=== PATIENT | female | born 1975 | race Caucasian/White ===

== ENCOUNTER 2018-08-30 06:30 | Day surgery (SDC) | payer OTHER ==
[~2018-08-30 06:30] MED LIST: LEVO-T50 MCG PO; OMEPRAZOLE20 MG PO; RANITIDINE HCL150 M1 PO; SIMVASTATIN10 MG PO; VALSARTAN-HCTZ1 EAC4 PO
== END 2018-08-30 13:20 | disposition home or self-care (01) ==
LOC: CIR.AMB 06:30 → U 06:30 → CIR.AMB 07:00
DX: N85.01 Benign endometrial hyperplasia (principal)

== ENCOUNTER 2019-10-03 13:17 | Day surgery (SDC) | payer OTHER | END 2019-10-03 20:20 | disposition home or self-care (01) | LOC: CIR.AMB 13:17 | DX: O02.1 Missed abortion (principal) ==